=== PATIENT | male | born 1980 ===

== ENCOUNTER 2023-07-24 14:48 | Inpatient (IN) | payer OTHER, SELFPAY ==
--- NOTE | 2023-07-24 | ECG_ITS ---
Test Reason : MED CLEARANCE Blood Pressure : / mmHG Vent. Rate : 059 BPM Atrial Rate : 059 BPM P-R Int : 152 ms QRS Dur : 086 ms QT Int : 414 ms P-R-T Axes : 067 056 046 degrees QTc Int : 409 ms Sinus bradycardia with marked sinus arrhythmia Otherwise normal ECG No previous ECGs available Referred By: Phillip Lowe Electronically Signed By:BRANDO FRAGOSO
[2023-07-24 14:57] VITALS: BP 119/83; PULSE 56; O2SAT 100
[2023-07-24 15:03] VITALS: BP 114/68; PULSE 57; RESP 14; TEMP 36.6; O2SAT 100; BMI 23.0
--- NOTE | 2023-07-24 15:10 | PC.NURSE ---
pt being changed over into hospital attire with security. large solis bag placed into laundry closet in pod
--- NOTE | 2023-07-24 15:16 | PC.NURSE ---
all belongings placed into laundry closet in the pod
--- NOTE | 2023-07-24 15:52 | MHC.EDTECH ---
Pt refused blood work and urine sample. Pushpa otto. SG
[2023-07-24] MEDS: LORazepam 1 MG TABLET 2 MG PO ×2 (16:28→21:24)
[2023-07-24 16:32] VITALS: RESP 18
--- NOTE | 2023-07-24 16:35 | PC.NURSE ---
Osiel was BIBA after being a section 12 in the community by [facility] for SI with a plan, access and intent. Osiel has been observed slightly agitated and punching a wall at one point in his room. He is easy to redirect and took Lorazepam 2mg PO. Osiel was given snacks and is currently watching TV and allowing lab draws,
--- NOTE | 2023-07-24 16:50 | ED_ITS ---
HPI - General Adult General Chief complaint: Psychiatric Symptoms Stated complaint: si with plan and means of access, per ems Time Seen by Provider: 07/24/23 15:58 Source: patient, RN notes reviewed and old records reviewed Mode of arrival: EMS Limitations: no limitations History of Present Illness HPI narrative: 43-year-old male presents for evaluation of suicidal ideation. The patient reports that he is feeling suicidal and has a plan that he will not disclose He reports he has tried to commit suicide many times in the past. He did not try to harm himself today at all He was seen in outpatient [facility] and was made a section 12 bed search for inpatient psychiatric care. The patient reports that he is not currently on any anti depression or antipsychotic medications. He reports ?I probably should be but when they offer last time I felt like I was being forced and that lately off so I did not take them. ? He denies any somatic complaints It was reported to me by nursing staff that the patient appeared to be responding to internal stimuli. During my evaluation this is not evident Related Data Home Medications Medication Instructions Recorded Confirmed No Known Home Meds 07/24/23 07/24/23 Allergies Allergy/AdvReac Type Severity Reaction Status Date / Time No Known Allergies Allergy Verified 07/24/23 16:34 Review of Systems Constitutional: Constitutional: Denies chills and Denies fever(s) ENT: Denies sore throat Cardiovascular: Cardiovascular: Denies chest pain and Denies dyspnea Respiratory: Respiratory: Denies dyspnea Gastrointestinal: Gastrointestinal: Denies abdominal pain, Denies nausea and Denies vomiting Musculoskeletal: Musculoskeletal: Denies back pain Integumentary/Breasts: Skin/Breast: Denies rash Psychiatric: Psychiatric: Reports anxiety, Reports depression, Reports hopelessness, Reports irritability, Reports paranoia and Reports suicidal ideation Physical Exam ED Vital Signs: Vital Signs - 24 hr 07/24/23 15:03 07/24/23 16:32 Temperature 97.8 F Pulse Rate 57 Respiratory Rate 14 18 Blood Pressure 114/68 Pulse Oximetry 100 Oxygen Delivery Method Room Air BMI result Body Mass Index 23.0 Const General: healthy appearing, comfortable, no acute distress, alert and awake Nutritional Appearance: well nourished Orientation/consciousness: patient oriented x3 HENMT Head: Yes normocephalic and Yes atraumatic Eyes Eyelids: Yes eyelids normal Conjunctivae: conjunctivae normal Sclerae: sclerae normal Corneas: corneas normal Pupils: Equal, round and reactive pupils present EOM: EOMs intact bilaterally Neck Neck: Yes full ROM Resp Effort & Inspection: normal respiratory effort, able to speak in complete sentences and not labored Skin General skin exam: no rashes or lesions noted and elasticity normal Neuro General: patient oriented x3 Cranial nerves: Yes Equal, round and reactive pupils present and Yes Bilaterally intact EOM present Cognition (Neuro): normal cognition Extrem Other: Moving all extremities well without any obvious deformities Medications Administered Discontinued Medications Generic Name Dose Route Start Last Admin Trade Name Ramónq PRN Reason Stop Dose Admin Lorazepam 2 mg 07/24/23 16:23 07/24/23 16:28 Lorazepam 1 Mg Tablet PO 07/24/23 16:24 2 mg ONCE ONE Administration Medical Decision Making Medical Decision Making MDM Narrative: 43-year-old male presents for evaluation of suicidal ideation. The patient is common cooperative during my evaluation. He reports feeling agitated. Will require medical clearance and is already a Section 12 for bed search. Labs are pending for medical clearance. The patient is open to taking medication to help calm him down, he will be given Ativan 2 mg orally Differential Diagnosis Differential Diagnoses: The differential diagnosis associated with the presentation includes Depression Suicidal ideation Schizophrenia Bipolar disorder Discharge Plan Discharge Clinical Impression: Suicidal ideation Patient Disposition: Still a Patient Prescriptions: No Action No Known Home Meds Interventions: [place]-Suicide Risk Severity Scale Last Done: 07/24/23 16:32
[2023-07-24 17:12] LABS: Appearance Urine Clear; Color Urine Yellow; Glucose Urine UA Negative (Negative); Leukocyte Esterase Urine Negative (Negative); Nitrite Urine Negative (Negative); PH 6.5 (5.0-9.0); Specific Gravity - Urine <= 1.005 (1.005-1.025); Urine Blood Negative (Negative); Urine Ketones Negative (Negative); Urine Protein Negative (Neg-Trace)
[2023-07-24 17:14] LABS: Bacteria Urine None Seen (None Seen); Hyaline Casts Urine 0-2 /LPF (0-2); RBC Urine 0-2 /HPF (0-2); Squamous Epithelial Cell Urine 0-2 /HPF (0-2); WBC Urine 0-5 /HPF (0-5)
[2023-07-24 17:15] LABS: Amphetamine Screen Urine Not Detected (Not Detect); Barbiturates, Urine Not Detected (Not Detect); Benzodiazepines Screen Urine Not Detected (Not Detect); Cannabinoid Screen Urine POSITIVE (Not Detect); Cocaine Screen Urine POSITIVE (Not Detect); Fentanyl, urine Not Detected (Not Detect); Opiate Screen Urine Not Detected (Not Detect); Phencyclidine Screen Urine Not Detected (Not Detect)
[2023-07-24 17:36] LABS: Basophils Percent Auto 0.4 % (0-2); Eosinophils Percent Auto 0.4 % (0-4); Hematocrit 42.8 % (42.0-52.0); Imm Gran Abs Auto 0.01 X10*3/uL (0.00-0.03); Imm Gran Pct Auto 0.4 % (0.0-0.4); Lymphocytes Absolute Auto 0.8 X10*3/uL (1.2-4.9); Lymphocytes Percent Auto 31.6 % (20-40); MANUAL DIFF FLAG SCAN; Mean Corpuscular HGB Conc 32.7 g/dl (31.0-36.0); Mean Corpuscular Hemoglobin 32.4 pg (27.0-33.0); Mean Corpuscular Volume 99.1 fL (80.0-98.0); Monocytes Absolute Auto 0.3 X10*3/uL (0.1-1.2); Monocytes Percent Auto 12.3 % (2-11); Neutrophils Absolute Auto 1.3 x10*3/uL (2.0-8.3); Neutrophils Percent Auto 54.9 % (45-73); Platelet Count 231 X10*3/uL (160-400); Red Blood Count 4.32 X10*6/uL (4.60-5.80); Red Cell Distribution Width 12.1 % (11.0-16.0); SCAN SMEAR FLAG 1
[2023-07-24 17:37] LABS: White Blood Count 2.4 X10*3/uL (4.8-10.8)
[2023-07-24 17:59] LABS: Acetaminophen LAB < 17 mcg/mL (<30); Alanine Aminotransferase 16 U/L (0-40); Albumin Level 4.4 g/dL (3.5-5.0); Alkaline Phosphatase 130 U/L (39-117); Anion Gap 14 (12-20); Aspartate Amino Transferase 22 U/L (5-37); Bilirubin Total 0.4 mg/dL (0.0-1.0); Blood Urea Nitrogen 6 mg/dL (9-16); Calcium 9.1 mg/dL (8.4-10.2); Carbon Dioxide 25 mmol/L (22-29); Chloride 107 mmol/L (96-108); Creatinine Clr Calc Pharmacy 118.7; Estimated Glomerular Filt Rate > 60; Ethanol < 10 mg/dL; Glucose Random 89 mg/dL (60-115); Potassium 4.2 mmol/L (3.3-5.1); Salicylate < 5.0 mg/dL (15-30); Sodium 142 mmol/L (135-145); Total Protein 7.4 g/dL (6.5-8.0)
[2023-07-24 18:57] LABS: SLIDE REVIEW VERIFIED
[2023-07-24 20:15] LABS: IDNOW Serial# 08D9AD1C
[2023-07-24 20:16] LABS: COVID-19 Test Negative (Negative)
[2023-07-25] VITALS (7 sets, daily range): BP systolic 136; BP diastolic 70; PULSE 58–76; RESP 16–18; TEMP 36.4; O2SAT 97–100
--- NOTE | 2023-07-25 03:25 | PC.ADMIT ---
Jean Pierre is a 43 year old who identifies as a male, arrived on the unit 2355 from [facility]. He is admitted on a CV to [facility] for safety and stabilization post SI with a plan that he declines to disclose. Differential diagnosis include schizophrenia, depression and Bipolar disorder. Covid-19 negative, scheduled labs in the morning, no scheduled meds, Assessment completed, multiple scar tissue noted to BUE/face post SIB, Blades years ago. He is ad-alfonzo with steady gait, no medical history reported. He expressed some irritability with admission process, declined prn, declined body audit because he wanted to change into his unauthorized clothing. (hooded sweat shirt, sweat pants with strings). Authorized clothing sent to to wash. Jean Pierre expressed irritation on placement AEB striking the velez with his fist, banging his head on the wall, and threatening staff, requesting to leave. He denied AVH, was vague in his response regarding SI/HI, I just act. therefore safety checks increased to 5 min ULB. Declined influenza /Covid vaccine. He requested to have mobile in order to get phone numbers but instead held the phone hostage, refusing to return it to staff which required code assist , with encouragement he returned the phone without incident. Reported that his roommate was singing and he would not be able to sleep so mattress taken to sensory room, given unit headphones to listen to music which he stated calms him, observed not using. Reports he normally gets about 4 hours of sleep daily. Jean Pierre was calmer and sitting down in the day room for a short period between [id number], returned to cosmetic account coordinator the hallway, continues to inquire if he can be discharged. Went to the sensory room at 0415. Treatment and Safety tool needs to be signed.
--- NOTE | 2023-07-25 10:24 | PC.NURSE ---
Pt refused vital signs and blood work. Demanding to speak to doctor and wants discharge. Provider notified.
[2023-07-25] MEDS: LORazepam 2 MG/ML VIAL IM (11:45)
[2023-07-25] MEDS: diphenhydrAMINE HCL 50 MG/ML VIAL IM (11:45)
[2023-07-25] MEDS: OLANZapine 10 MG VIAL IM (11:45)
--- NOTE | 2023-07-25 12:04 | P.HPPS_ITS ---
HPI Date of Service: 07/25/23 Chief Complaint: SI Sources of Information: patient interviewed, chart reviewed and crisis/core team assessment reviewed HPI Subjective Notes: Section 12B Narrative: The patient is a 43-year-old male, single, father of 1 adult children who is not involved in his care, he stated that he had been employed currently, with unknown status of residence, referred to the crisis team of [facility] since his disaster recovery manager reported that the patient had been suicidal. According to the crisis assessment, the patient had been working out and using adult he buys on the street, he reported to his disaster recovery manager that is his next option and he was unable to contract for safety. He was rushed to the emergency room, assessed by crisis and transferring to this facility for psychiatric stabilization. According to the crisis assessment, the patient presented himself with manic symptoms elicited by racing thoughts, labile mood, flight of ideas and psychomotor agitation. The patient was brought to the unit on a Section 12. He refused to sign CV and he wanted to leave as soon as possible. During the intake interview, the patient was cursing and he threatened that he will hurt staff or peers he is not discharged immediately. He wanted to use his phone, he wanted to have access to a TV in his room and he was uncooperative regarding the safety protocols and we have regarding shoelaces and belts. Also during the interview the patient admitted that suicide is a possibility to him and he was unable to contract for safety. He became very threatening, he to call security and I offered p.o. p.r.n. that he refused. The patient escalated to the point that we need to call security and eventually we have to chemically and physically restrain him for safety. During the intake interview the patient was unable to provide major information and it was clear that he was unsafe in the community. We could not gather more information on this 1st attempt. Past Psychiatric History: Unclear but apparently he had been admitted into the hospital before. Medical Evaluation Reviewed: Yes Diagnostics Vital Signs (24Hr): Vital Signs - 24 hr 07/24/23 15:03 07/24/23 16:32 07/25/23 00:10 Temperature 97.8 F 97.6 F Pulse Rate 57 76 Respiratory Rate 14 18 18 Blood Pressure 114/68 136/70 Pulse Oximetry 100 97 Oxygen Delivery Method Room Air Room Air BMI result Body Mass Index 23.0 Labs 07/24/23 17:21 07/24/23 17:21 Labs: Laboratory Results - last 48 hr 07/24/23 07/24/23 07/24/23 16:45 17:21 19:50 WBC 2.4 L RBC 4.32 L Hgb 14.0 Hct 42.8 MCV 99.1 H MCH 32.4 MCHC 32.7 RDW 12.1 Plt Count 231 MPV 9.0 L Immature Gran % (Auto) 0.4 Neut % (Auto) 54.9 Lymph % (Auto) 31.6 [place] % (Auto) 12.3 H Eos % (Auto) 0.4 Baso % (Auto) 0.4 Lymph # (Auto) 0.8 L [place] # (Auto) 0.3 Eos # (Auto) 0.0 Baso # (Auto) 0.0 Abs Immat Gran (auto) 0.01 Absolute Neuts (auto) 1.3 L Absolute Nucleated RBC 0.000 Nucleated RBC % (auto) 0.0 Smear Tech's Comments VERIFIED Sodium 142 Potassium 4.2 Chloride 107 Carbon Dioxide 25 Anion Gap 14 BUN 6 L Creatinine 0.84 Estim Creat Clear Calc 118.7 Estimated GFR > 60 Random Glucose 89 Calcium 9.1 Total Bilirubin 0.4 AST 22 ALT 16 Alkaline Phosphatase 130 H Total Protein 7.4 Albumin 4.4 Urine Color Yellow Urine Appearance Clear Urine pH 6.5 Ur Specific [place] <= 1.005 Urine Protein Negative Urine Glucose (UA) Negative Urine Ketones Negative Urine Blood Negative Urine Nitrite Negative Ur Leukocyte Esterase Negative Urine RBC 0-2 Urine WBC 0-5 Ur Squamous Epith Cells 0-2 Urine Bacteria None Seen Hyaline Casts 0-2 Salicylates < 5.0 L Urine Opiates Screen Not Detected Urine Fentanyl Screen Not Detected Acetaminophen < 17 Ur Barbiturates Screen Not Detected Ur Phencyclidine Scrn Not Detected Ur Amphetamines Screen Not Detected U Benzodiazepines Scrn Not Detected Urine Cocaine Screen POSITIVE H U Marijuana (THC) Screen POSITIVE H Ethyl Alcohol < 10 COVID-19 ([facility]) Negative COVID-19 Clin Com See Note Meds/Allergies Meds Home Medications Medication Instructions Recorded Confirmed Type No Known Home Meds 07/24/23 07/24/23 History Allergies Allergies Allergy/AdvReac Type Severity Reaction Status Date / Time No Known Allergies Allergy Verified 07/24/23 16:34 Mental Status Exam Mental Status Exam Patient Appearance: Disheveled and Unkempt Patient Orientation: Person and Situation Level of Consciousness: Restless, Inappropriate and Combative Patient Behavior: Posturing, Aggressive, Restless and Combative Mood Description: Hostile, Angry and Elated Affect Description: Labile and Angry Patient Cognition Impaired: No Ability to Follow Directions: Poor Speech Pattern: Rapid, Excessive, Loud and Includes Profanity Hallucinations: None Delusions: Paranoid Ideation, Grandiose and Ideas of Reference Thought Process: Racing and Illogical Thought Content: positive for Perseveration, positive for Loose Associations and positive for Thought Blocking Judgement: Poor Assessment & Plan Assessment & Plan (1) Mood disorder: Status: Acute Code(s): F39 - Unspecified mood [affective] disorder (2) Substance abuse: Status: Acute Code(s): F19.10 - Other psychoactive substance abuse, uncomplicated Plan The patient is an adult male with a past history of substance abuse who was admitted into the facility since he disclosed suicidal ideation but with clear signs and symptoms of loreta. When he was brought here, he was threatening staff, peers and himself, unable to contract for safety we needed to physically and chemically restrain him. Plan 1. Gather collateral information the patient is a very poor historian able to provide details of prior care. 2. Start Zyprexa 5 mg p.o. t.i.d.. 3. The patient should be on one-to-one for safety due to his unstable mood and threatening behavior. 4. Continue with medical workout. Patient educated on: therapeutic strategies Reason for continued inpatient stay Substantial Risk for: harm to self, harm to others, inability to function, rapid decompensation and med/psych decompensation Statement Statement: I have reviewed the history and physical and performed a pertinent examination on my patient. No changes have occurred unless specified. If the History and Physical was not performed prior to admission, the Hospitalist's service will be consulted for completing the admission physical. Time Spent With Patient Time: Total time managing care of this patient today __60__ minutes.
--- NOTE | 2023-07-25 14:05 | PC.NURSE ---
MEDICATION RESTRAINT NOTE At approximately 1045 pt approached the nurse's station, demanding to be discharged. Banging on velez, becoming increasingly agitated, and could not be redirected away from the vicinity of the nurse's station. Pt met with Dr. Grant. After meeting with pt, requested security to be called to the unit due to pt threatening to assault staff. Upon security's arrival, pt was found barricading in the side TV room. Door was easily opened. At this time extra assistance from other floors was requested, and the nursing supervisor bleach plant was notified. Pt's roommate was moved to another room due to concerns of pt's threats and potential for violence. Pt was redirected back to his room after much verbal intervention from staff. Once in room, pt was offered PO meds, in which he declined. Pt expressing extreme frustration, reporting that he was lied to, and was told prior to admission he was told he would be able to have his phone and all of his clothes, as well as having a TV in his room. Pt offered PO meds after staff attempted verbal deescalation for quite some time. Dr. Grant ordered medication restraint, in which pt was agreeable and cooperative with. Medication restraint initiated at 1145 (ending after 1 minute at 1146). Pt was was given benadryl 50 MG IM, zyprexa 10 MG IM, and ativan 2 MG IM. Pt's feelings about being lied to were validated by nursing supervisor bleach plant, floor RN, and MHCs, which did decrease pt's agitation somewhat. He did report that he was told that he would be able to have specific personal items (phone, clothes with strings) as he was waiting on a stretcher when he came into the ED. Pt was left on his own without further incident. Pt is currently asleep. Will continue to monitor for safety.
[2023-07-26 06:00] VITALS: BP 160/91; PULSE 79; RESP 18; TEMP 36.5; O2SAT 99
--- NOTE | 2023-07-26 11:44 | P.PNPSI_ITS ---
Subjective Subjective Date of Service: 07/26/23 Reason For Visit: SI Subjective Notes: Section 12B Interim History: Yesterday the patient needed to be physically and chemically restrain. He slept all night long, he was sedated until 20:00 he went out to watch some TV and then went back to sleep. Today in the morning he refused to take his medications and he slept all day long. On interview the patient remains very sedated after the chemical restraint. Since the patient has threatened violence against peers and staff time blocking his bed and keeping him on 5 minutes checks. Mental Status Exam Mental Status Exam Patient Appearance: Appropriate Patient Orientation: Person Level of Consciousness: Sedated Patient Behavior: Guarded and Sedated Mood Description: Withdrawn Affect Description: Blunted Ability to Follow Directions: Poor Speech Pattern: Impoverished Hallucinations: None Delusions: Not Present Thought Process: Illogical, Distracted and Slowed Thinking Thought Content: positive for [place] and positive for Poverty of Content Judgement: Poor Diagnostics Vital Signs (24Hr): Vital Signs - 24 hr 07/25/23 12:00 07/25/23 12:15 07/25/23 12:30 Temperature Pulse Rate Respiratory Rate 18 18 18 Blood Pressure Pulse Oximetry Oxygen Delivery Method 07/25/23 12:45 07/25/23 19:50 07/25/23 22:02 Temperature 97.5 F Pulse Rate 58 Respiratory Rate 16 18 16 Blood Pressure 136/70 Pulse Oximetry 100 Oxygen Delivery Method Room Air BMI result Body Mass Index 23.0 Labs 07/24/23 17:21 07/24/23 17:21 Labs: Laboratory Results - last 48 hr 07/24/23 07/24/23 07/24/23 16:45 17:21 19:50 WBC 2.4 L RBC 4.32 L Hgb 14.0 Hct 42.8 MCV 99.1 H MCH 32.4 MCHC 32.7 RDW 12.1 Plt Count 231 MPV 9.0 L Immature Gran % (Auto) 0.4 Neut % (Auto) 54.9 Lymph % (Auto) 31.6 [place] % (Auto) 12.3 H Eos % (Auto) 0.4 Baso % (Auto) 0.4 Lymph # (Auto) 0.8 L [place] # (Auto) 0.3 Eos # (Auto) 0.0 Baso # (Auto) 0.0 Abs Immat Gran (auto) 0.01 Absolute Neuts (auto) 1.3 L Absolute Nucleated RBC 0.000 Nucleated RBC % (auto) 0.0 Smear Tech's Comments VERIFIED Sodium 142 Potassium 4.2 Chloride 107 Carbon Dioxide 25 Anion Gap 14 BUN 6 L Creatinine 0.84 Estim Creat Clear Calc 118.7 Estimated GFR > 60 Random Glucose 89 Calcium 9.1 Total Bilirubin 0.4 AST 22 ALT 16 Alkaline Phosphatase 130 H Total Protein 7.4 Albumin 4.4 Urine Color Yellow Urine Appearance Clear Urine pH 6.5 Ur Specific [place] <= 1.005 Urine Protein Negative Urine Glucose (UA) Negative Urine Ketones Negative Urine Blood Negative Urine Nitrite Negative Ur Leukocyte Esterase Negative Urine RBC 0-2 Urine WBC 0-5 Ur Squamous Epith Cells 0-2 Urine Bacteria None Seen Hyaline Casts 0-2 Salicylates < 5.0 L Urine Opiates Screen Not Detected Urine Fentanyl Screen Not Detected Acetaminophen < 17 Ur Barbiturates Screen Not Detected Ur Phencyclidine Scrn Not Detected Ur Amphetamines Screen Not Detected U Benzodiazepines Scrn Not Detected Urine Cocaine Screen POSITIVE H U Marijuana (THC) Screen POSITIVE H Ethyl Alcohol < 10 COVID-19 ([facility]) Negative COVID-19 Clin Com See Note Medications Medications Current Medications Acetaminophen (Acetaminophen 325 Mg Tablet) 650 mg PO Q6H PRN PRN Reason: Headache/Pain Mild Scale (1-3) Al Hydroxide/Mg Hydroxide (Magnesium Hydrox/Alum Hydrox 30 Ml Oral.Susp) 30 ml PO Q6H PRN PRN Reason: Heartburn/Nausea Diphenhydramine HCl (Diphenhydramine Hcl 25 Mg Capsule) 50 mg PO Q4H PRN PRN Reason: prevention of EPS Hydroxyzine HCl (Hydroxyzine Hcl 25 Mg Tablet) 25 mg PO Q6H PRN PRN Reason: Anxiety Magnesium Hydroxide (Milk Of Magnesia 30 Ml Oral.Susp) 30 ml PO DAILY PRN PRN Reason: Constipation Olanzapine (Olanzapine Odt 10 Mg Tab.Rapdis) 10 mg TRANSLINGU Q4H PRN PRN Reason: agitation Olanzapine (Olanzapine 5 Mg Tablet) 5 mg PO TID [facility] Last Admin: 07/25/23 22:05 Dose: Not Given Trazodone HCl (Trazodone Hcl 50 Mg Tablet) 50 mg PO BEDTIME MRX1 PRN PRN Reason: Insomnia Allergies Allergies Allergy/AdvReac Type Severity Reaction Status Date / Time No Known Allergies Allergy Verified 07/24/23 16:34 Assessment & Plan Assessment & Plan (1) Mood disorder: Status: Acute Code(s): F39 - Unspecified mood [affective] disorder (2) Substance abuse: Status: Acute Code(s): F19.10 - Other psychoactive substance abuse, uncomplicated Plan The patient is an adult male with a past history of substance abuse who was admitted into the facility since he disclosed suicidal ideation but with clear signs and symptoms of loreta. When he was brought here, he was threatening staff, peers and himself, unable to contract for safety we needed to physically and chemically restrain him. Plan 1. Gather collateral information the patient is a very poor historian able to provide details of prior care. 2. Start Zyprexa 5 mg p.o. t.i.d.. 3. The patient is currently on 5 minutes checks 4. Continue with medical workout. Reason for continued inpatient stay Substantial Risk for: harm to self, harm to others, inability to function, rapid decompensation and med/psych decompensation Time Spent With Patient Time: Total time managing care of this patient today __20__ minutes.
[2023-07-26] MEDS: OLANZapine 5 MG TABLET PO ×2 (15:13→20:46)
[2023-07-26 20:50] VITALS: BP 109/64; PULSE 75; RESP 18; TEMP 36.2; O2SAT 97
[2023-07-27 08:00] VITALS: BP 125/73; PULSE 51; RESP 14; TEMP 36.7; O2SAT 100
[2023-07-27] MEDS: OLANZapine 5 MG TABLET PO (09:07)
[2023-07-27] MEDS: Lithium Carbonate ER 300 MG TABLET.ER 600 MG PO ×2 (11:57→21:35)
--- NOTE | 2023-07-27 14:54 | HO.PSYCHPN ---
Subjective Subjective Date of Service: 07/27/23 Reason For Visit: SI Interim History: acknowledges his chronic mood disorder and the need for help, having a hard time reconciling with remaining in the hospital. feeling a lot of energy and the need to exercise. agreeable to start lithium - states he has h/o having been on VPA in the past and it's not having helped him. also amenable to increase zyprexa to 20 mg and consolidate dosing at HS. Mental Status Exam Mental Status Exam Narrative: adequately dressed and groomed. linear scars over arms and on left side of face. cooperative, no PMA/PMR. speech incr rate, nml amount, loudness, tone. decr latency. thoughts linear and logical. affect hyperintense, non-labile. mood irritable. no SI/HI/AVH expressed. Diagnostics Vital Signs (24Hr): Vital Signs - 24 hr 07/26/23 20:50 07/27/23 08:00 Temperature 97.2 F 98.1 F Pulse Rate 75 51 Respiratory Rate 18 14 Blood Pressure 109/64 125/73 Pulse Oximetry 97 100 Oxygen Delivery Method Room Air Room Air BMI result Body Mass Index 23.0 Labs 07/24/23 17:21 07/24/23 17:21 Labs: Laboratory Results - last 48 hr 07/24/23 17:21 Smear Path Review Cancelled Medications Medications Current Medications Acetaminophen (Acetaminophen 325 Mg Tablet) 650 mg PO Q6H PRN PRN Reason: Headache/Pain Mild Scale (1-3) Al Hydroxide/Mg Hydroxide (Magnesium Hydrox/Alum Hydrox 30 Ml Oral.Susp) 30 ml PO Q6H PRN PRN Reason: Heartburn/Nausea Diphenhydramine HCl (Diphenhydramine Hcl 25 Mg Capsule) 50 mg PO Q4H PRN PRN Reason: prevention of EPS Hydroxyzine HCl (Hydroxyzine Hcl 25 Mg Tablet) 25 mg PO Q6H PRN PRN Reason: Anxiety [place] Carbonate ([place] Carbonate Er 300 Mg Tablet.Er) 600 mg PO BID JODIE Last Admin: 07/27/23 11:57 Dose: 600 mg Magnesium Hydroxide (Milk Of Magnesia 30 Ml Oral.Susp) 30 ml PO DAILY PRN PRN Reason: Constipation Olanzapine (Olanzapine Odt 10 Mg Tab.Rapdis) 10 mg TRANSLINGU Q4H PRN PRN Reason: agitation Olanzapine (Olanzapine 10 Mg Tablet) 20 mg PO BEDTIME JODIE Trazodone HCl (Trazodone Hcl 50 Mg Tablet) 50 mg PO BEDTIME MRX1 PRN PRN Reason: Insomnia Allergies Allergies Allergy/AdvReac Type Severity Reaction Status Date / Time No Known Allergies Allergy Verified 07/24/23 16:34 Assessment & Plan Assessment & Plan (1) Mood disorder: Status: Acute Code(s): F39 - Unspecified mood [affective] disorder (2) Substance abuse: Status: Acute Code(s): F19.10 - Other psychoactive substance abuse, uncomplicated Plan The patient is an adult male with a past history of substance abuse who was admitted into the facility since he disclosed suicidal ideation but with clear signs and symptoms of loreta. When he was brought here, he was threatening staff, peers and himself, unable to contract for safety we needed to physically and chemically restrain him. Plan 1. Gather collateral information the patient is a very poor historian able to provide details of prior care. 2. Start Zyprexa 5 mg p.o. t.i.d.. 3. The patient is currently on 5 minutes checks 4. Continue with medical workout. 07/27: start lithium 600 BID for presumed bipolar disorder. consolidate olanzapine at HS and increase total daily dosing from 15 mg to 20 mg. pt requesting discharge tomorrow, which may be accommodated. Reason for continued inpatient stay Substantial Risk for: inability to function and rapid decompensation Time Spent With Patient Time: Total time managing care of this patient today __35__ minutes.
[2023-07-27 20:15] VITALS: BP 133/63; PULSE 63; RESP 18; TEMP 36.5; O2SAT 99
[2023-07-27] MEDS: OLANZapine 10 MG TABLET 20 MG PO (21:35)
[2023-07-27] MEDS: traZODone HCL 50 MG TABLET PO ×2 (21:42→23:09)
[2023-07-27] MEDS: OLANZapine ODT 10 MG TAB.RAPDIS TRANSLINGU (23:09)
[2023-07-28] MEDS: Lithium Carbonate ER 300 MG TABLET.ER 600 MG PO (08:24)
[2023-07-28 09:19] VITALS: BP 137/83; PULSE 67; RESP 16; TEMP 36.3; O2SAT 98
--- NOTE | 2023-07-28 10:45 | P.DS_ITS ---
DS: Providers Provider Date of Service: 07/28/23 Date of admission: 07/24/23 23:27 Primary care physician: Unknown Physician DS: Diagnosis Discharge Diagnosis (1) Mood disorder: Status: Acute (2) Substance abuse: Status: Acute DS: Medications Discharge Medications Home Medications: Previous Rx's Medication Instructions Recorded lithium carbonate 300 mg 600 mg (2 x 300 mg) PO BID 30 days 07/28/23 tablet,extended release #120 tabs olanzapine 10 mg tablet 30 mg (3 x 10 mg) PO BEDTIME 30 07/28/23 days #90 tabs trazodone 50 mg tablet 100 mg (2 x 50 mg) PO BEDTIME 07/28/23 Insomnia 30 days #60 tabs Mental Status Exam Mental Status Exam Narrative: adequately dressed and groomed. linear scars over arms and on left side of face. cooperative, no PMA/PMR. speech incr rate, nml amount, loudness, tone. decr latency. thoughts linear and logical. affect hyperintense, non-labile. mood i'm good. no SI/SIBI/HI/AVH. Data Data Completed and Pending Completed studies during hospitalization [Text1]: 07/24/23 07/24/23 07/24/23 16:45 17:21 19:50 WBC 2.4 L RBC 4.32 L Hgb 14.0 Hct 42.8 MCV 99.1 H MCH 32.4 MCHC 32.7 RDW 12.1 Plt Count 231 MPV 9.0 L Immature Gran % (Auto) 0.4 Neut % (Auto) 54.9 Lymph % (Auto) 31.6 [place] % (Auto) 12.3 H Eos % (Auto) 0.4 Baso % (Auto) 0.4 Lymph # (Auto) 0.8 L [place] # (Auto) 0.3 Eos # (Auto) 0.0 Baso # (Auto) 0.0 Abs Immat Gran (auto) 0.01 Absolute Neuts (auto) 1.3 L Absolute Nucleated RBC 0.000 Nucleated RBC % (auto) 0.0 Smear Tech's Comments VERIFIED Smear Path Review Cancelled Sodium 142 Potassium 4.2 Chloride 107 Carbon Dioxide 25 Anion Gap 14 BUN 6 L Creatinine 0.84 Estim Creat Clear Calc 118.7 Estimated GFR > 60 Random Glucose 89 Calcium 9.1 Total Bilirubin 0.4 AST 22 ALT 16 Alkaline Phosphatase 130 H Total Protein 7.4 Albumin 4.4 Urine Color Yellow Urine Appearance Clear Urine pH 6.5 Ur Specific [place] <= 1.005 Urine Protein Negative Urine Glucose (UA) Negative Urine Ketones Negative Urine Blood Negative Urine Nitrite Negative Ur Leukocyte Esterase Negative Urine RBC 0-2 Urine WBC 0-5 Ur Squamous Epith Cells 0-2 Urine Bacteria None Seen Hyaline Casts 0-2 Salicylates < 5.0 L Urine Opiates Screen Not Detected Urine Fentanyl Screen Not Detected Acetaminophen < 17 Ur Barbiturates Screen Not Detected Ur Phencyclidine Scrn Not Detected Ur Amphetamines Screen Not Detected U Benzodiazepines Scrn Not Detected Urine Cocaine Screen POSITIVE H U Marijuana (THC) Screen POSITIVE H Ethyl Alcohol < 10 COVID-19 ([facility]) Negative COVID-19 Clin Com See Note DS: Summary Hospital Course Hospital Course: per 07/25 admission note: The patient is a 43-year-old male, single, father of 1 adult children who is not involved in his care, he stated that he had been employed currently, with unknown status of residence, referred to the crisis team of [facility] since his womens volleyball coach reported that the patient had been suicidal. According to the crisis assessment, the patient had been working out and using adult he buys on the street, he reported to his womens volleyball coach that is his next option and he was unable to contract for safety. He was rushed to the emergency room, assessed by crisis and transferring to this facility for psychiatric stabilization. According to the crisis assessment, the patient presented himself with manic symptoms elicited by racing thoughts, labile mood, flight of ideas and psychomotor agitation. The patient was brought to the unit on a Section 12. He refused to sign CV and he wanted to leave as soon as possible. During the intake interview, the patient was cursing and he threatened that he will hurt staff or peers he is not discharged immediately. He wanted to use his phone, he wanted to have access to a TV in his room and he was uncooperative regarding the safety protocols and we have regarding shoelaces and belts. Also during the interview the patient admitted that suicide is a possibility to him and he was unable to contract for safety. He became very threatening, he to call security and I offered p.o. p.r.n. that he refused. The patient escalated to the point that we need to call security and eventually we have to chemically and physically restrain him for safety. During the intake interview the patient was unable to provide major information and it was clear that he was unsafe in the community. We could not gather more information on this 1st attempt. Past Psychiatric History: Unclear but apparently he had been admitted into the hospital before. Medical Evaluation Reviewed: Yes 07/26: Yesterday the patient needed to be physically and chemically restrain. He slept all night long, he was sedated until 20:00 he went out to watch some TV and then went back to sleep. Today in the morning he refused to take his medications and he slept all day long. On interview the patient remains very sedated after the chemical restraint. Since the patient has threatened violence against peers and staff time blocking his bed and keeping him on 5 minutes checks. 07/27: acknowledges his chronic mood disorder and the need for help, having a hard time reconciling with remaining in the hospital. feeling a lot of energy and the need to exercise. agreeable to start lithium - states he has h/o having been on VPA in the past and it's not having helped him. also amenable to increase zyprexa to 20 mg and consolidate dosing at HS. Precis: The patient is an adult male with a past history of substance abuse who was admitted into the facility since he disclosed suicidal ideation but with clear signs and symptoms of loreta. When he was brought here, he was threatening staff, peers and himself, unable to contract for safety we needed to physically and chemically restrain him. 07/25: Gather collateral information the patient is a very poor historian able to provide details of prior care. Start Zyprexa 5 mg p.o. t.i.d. The patient is currently on 5 minutes checks. 07/26: no change in plan. 07/27: start lithium 600 BID for presumed bipolar disorder. consolidate olanzapine at HS and increase total daily dosing from 15 mg to 20 mg. pt requesting discharge tomorrow, which may be accommodated. 07/28: stable overnight. was kissing 20 yo female peer yesterday afternoon. slept well, asking for 30 mg zyprexa at HS along with 100 mg trazodone in addition to lithium 600 BID. meds reviewed, reconciled, prescribed. extensive education provided re lithium side effects and Sx of toxicity. pt discharged to outpt F/U. Time Spent with Patient Time attestation: Total time managing care of this patient today ____ minutes. Time spent: Greater than 30 minutes Discharge Plan Discharge Anticipated Discharge Date/Time: 07/28/23 12:00 Patient Disposition: Home, Self-Care Discharge Diagnosis: Mood Disorder NOS Rule Out Bipolar Disorder Polysubstance Use Disorder Referrals: [facility] [Other] - 07/29/23 2:00 pm (Intake Assessment- Thelma Fox) [facility] [Other] - 08/27/23 10:00 am (Psychiatric evaluation -Deneen Young ) [facility] [Other] - 09/22/23 1:00 pm (Medication Management-Deneen Rosenberg) [facility] [Provider Group] - 1 Week Discharge Medications: New trazodone 50 mg Tablet 100 mg PO BEDTIME 30 Days Qty: 60 0RF olanzapine 10 mg Tablet 30 mg PO BEDTIME 30 Days Qty: 90 0RF lithium carbonate 300 mg Tablet Extended Release 600 mg PO BID 30 Days Qty: 120 0RF Discharge Orders: Discharge Order (Routine); Ordered 07/28/23 Ordered By: Osiel Rod Diet: Advance to usual diet Activity on Discharge: As tolerated Stand Alone Forms: Patient Portal Discharge page, Community Support Care Plan Goals: remain safe, stable, and sober in the outpatient treatment setting Health Concerns: none Plan of Treatment: take medications as prescribed, follow up with [facility] for outpatient care Assessment: not at imminent risk of harm to self or others Discharge Date/Time: 07/28/23 12:55
== END 2023-07-28 12:55 | disposition home or self-care (01) | DRG 753 ==
LOC: HO.ED 19:04 → HO.PADLT16 23:44
PROVIDERS: Physician Assistant; Admitting Provider Psychiatry & Neurology Psychiatry; Emergency Provider Emergency Medicine; Visit Provider Psychiatry & Neurology Psychiatry
DX: F31.9 Bipolar disorder, unspecified (principal); R45.851 Suicidal ideations; F19.90 Other psychoactive substance use, unspecified, uncomplicated; Z20.822 Contact with and (suspected) exposure to COVID-19
CPT/HCPCS: 36415; 80053; 80143; 80179; 80307; 81001; 85025; 87635; 93005; 99285; J1200; J2060

== ENCOUNTER → 2023-07-24 23:27 | Outpatient (BNV) | payer OTHER, SELFPAY | PROVIDERS: Admitting Provider Psychiatry & Neurology Psychiatry; Emergency Provider Emergency Medicine; Visit Provider Psychiatry & Neurology Psychiatry | DX: F39 Unspecified mood [affective] disorder (principal); F19.10 Other psychoactive substance abuse, uncomplicated | CPT/HCPCS: 99232; 99233 ==